=== PATIENT | male | born 1990 | race Caucasian/White ===

== ENCOUNTER → 2020-04-16 | Outpatient (CLI) | payer BC ==
--- NOTE | 2020-04-16 09:39 | RAD ---
EXAMINATION: US HEAD/NECK SOFT TISSUE, 04/16/2020 8:01 AM CLINICAL INDICATION: Lump on left neck near collar bone, present for a while but starting to become painful TECHNIQUE: Grayscale and color Doppler sonographic images of the left neck in the area of concern COMPARISON: None. FINDINGS: There are multiple mildly enlarged lymph nodes in the left supraclavicular region with mild ly thickened cortices. The largest measures 1.5 x 2.2 x 0.7 cm. There is no soft tissue mass or fluid collection. IMPRESSION: Mild left supraclavicular lymphadenopathy. Recommend CT of the neck and chest to further evaluate. Electronically signed by: Antonette Dunham MD (04/16/2020 9:36 AM) [id number]
== END ==
LOC: US 07:56
PROVIDERS: ATTEND Physician Assistant
DX: R22.1 Localized swelling, mass and lump, neck (principal)
CPT/HCPCS: 76536

== ENCOUNTER → 2020-04-30 | Outpatient (CLI) | payer BC ==
[~2020-04-30] MED LIST: IOHEXOL 300 MG/ML 75 ML VIAL. IV ONE
--- NOTE | 2020-04-30 15:57 | RAD ---
EXAM: CT Neck with IV contrast INDICATION: Reason: L SIDE NECK ADENOPATHY / Spl. Instructions: / History: TECHNIQUE: Multiple contiguous axial images were obtained of the neck with the use of IV contrast. Po st-processing reconstructed images were obtained for interpretation. All CT scans performed at [facility] utilize dose optimization techniques as appropriate to the exam, including the following: Aut omated exposure control and adjustment of the mA and/or KV according to patient size (this includes t echniques or standardized protocols for targeted exams where dose is indication/reason for exam). IV CONTRAST: Administered COMPARISON: Soft tissue neck ultrasound of 04/16/2020 FINDINGS: INTRACRANIAL STRUCTURES & ORBITS: Unremarkable. AERODIGESTIVE: The nasal cavity, nasopharynx, oral cavity, oropharynx, hypopharynx, larynx, and visu alized trachea and esophagus demonstrate no masses or abnormal enhancement. CERVICAL LYMPH NODES & SOFT TISSUES: The left-sided supraclavicular lymph nodes are asymmetrically larger compared with the right side, wi th the largest node measuring 20 cm x 7 mm (coronal image 29 of series 3). They show smooth cortical margins with no evidence of suppuration. There are left level 1 and 2 axillary lymph nodes that are asymmetrically larger than those on the ri ght but are not pathologically enlarged, measuring up to 9 x 7 mm. THYROID & SALIVARY GLANDS: Unremarkable. LUNG APICES: Clear. OSSEOUS: Unremarkable IMPRESSION: 1. No soft tissue neck mass identified on contrast enhanced CT. 2. Mild asymmetric left-sided cervical and axillary lymph nodes showing no aggressive features. Recom mend clinical correlation and follow-up. These are amenable to ultrasound-guided core needle biopsy i f desired. Electronically signed by: Soraida Valenzuela MD (04/30/2020 3:55 PM) [id number]
== END ==
LOC: CT 08:47
PROVIDERS: ATTEND Physician Assistant
DX: R59.0 Localized enlarged lymph nodes (principal)
CPT/HCPCS: 70491; Q9967